=== PATIENT | male | born 1965 | race Caucasian/White ===

== ENCOUNTER 2016-10-14 20:15 | Emergency (ER) | payer OTHER ==
[~2016-10-14] VITALS: Ht 172.7 cm; Wt 88.8 kg
[2016-10-14 20:41] LABS: HEMATOCRIT 42.9 % (38.0-50.0); MCHC 35.7 G/DL (30.0-36.0); MCV 86.8 FL (86-99); MEAN PLAT.VOLUME 9.3 uM^3 (9.0-12.4); PLATELET COUNT 296 K/uL (156-360); RBC DIS.WIDTH-CV 12.3 % (11.8-14.6); RBC DIS.WIDTH-SD 38.5 % (39-53); RED BLOOD COUNT 4.94 M/uL (4.00-5.50); WHITE BLOOD COUNT 6.6 K/uL (4.1-10.2)
[2016-10-14 20:52] LABS: CHLORIDE 105 mEq/L (99-109); POTASSIUM 3.7 mEq/L (3.7-5.4); SODIUM 143 mEq/L (136-147)
[2016-10-14 20:53] LABS: GLUCOSE 104 mg/dL (70-99)
[2016-10-14 20:55] LABS: ANION GAP 13 MEQ/L (2-14)
[2016-10-14 20:57] LABS: GFR ESTIMATE (CALCULATED) > 59 mL/min/
[2016-10-14 20:58] LABS: UREA NITROGEN (BUN) 20 mg/dL (9-23)
[2016-10-14 21:00] LABS: TROP-I INTERPRETATION NEGATIVE; TROPONIN-I < 0.01 ng/mL (0.0-0.30)
[2016-10-14 21:46] LABS: TOTAL BILIRUBIN 0.4 mg/dL (0.0-1.0)
[2016-10-14 21:47] LABS: ALKALINE PHOSPHATASE 56 IU/L (3-129)
[2016-10-14 21:49] LABS: DIRECT BILIRUBIN 0.2 mg/dL (0.0-0.3)
[2016-10-14 21:50] LABS: LIPASE 58 U/L (1.0-51.0)
[2016-10-14 21:51] LABS: D-DIMER ELISA 0.37 mg/L FEU (< 0.57)
[2016-10-14 23:03] LABS: TROP-I INTERPRETATION NEGATIVE; TROPONIN-I < 0.01 ng/mL (0.0-0.30)
[2016-10-14] MEDS ORDERED: NAPROSYN500 MG PO (23:06)
[2016-10-14 23:32] VITALS: BP 120/78
== END 2016-10-14 23:33 | disposition home or self-care (01) ==
LOC: EME 20:15
PROVIDERS: Emergency Medicine
DX: R07.89 Other chest pain (principal); M25.511 Pain in right shoulder; R11.0 Nausea; M79.641 Pain in right hand
CPT/HCPCS: 71020; 80048; 80076; 83690; 84484; 85027; 85379; 93005; 99281; 99284

== ENCOUNTER 2017-03-24 21:03 | Inpatient (IN) | payer OTHER ==
[~2017-03-24] VITALS: Ht 172.7 cm; Wt 91.6 kg
[~2017-03-24 21:03] MED LIST: NAPROSYN500 MG PO
[2017-03-24 22:02] LABS: MCH 30.2 PG (29.0-34.0); MCHC 35.3 G/DL (30.0-36.0); MCV 85.6 FL (86-99); MEAN PLAT.VOLUME 9.2 uM^3 (9.0-12.4); PLATELET COUNT 280 K/uL (156-360); RBC DIS.WIDTH-CV 11.9 % (11.8-14.6); RBC DIS.WIDTH-SD 37.6 % (39-53); RED BLOOD COUNT 5.49 M/uL (4.00-5.50); WHITE BLOOD COUNT 5.9 K/uL (4.1-10.2)
[2017-03-24 22:11] LABS: CHLORIDE 104 mEq/L (99-109)
[2017-03-24 22:12] LABS: POTASSIUM 3.6 mEq/L (3.7-5.4); SODIUM 138 mEq/L (136-147)
[2017-03-24 22:14] LABS: GLUCOSE 131 mg/dL (70-99)
[2017-03-24 22:15] LABS: ANION GAP 11 MEQ/L (2-14)
[2017-03-24 22:16] LABS: TOTAL BILIRUBIN 6.9 mg/dL (0.0-1.0)
[2017-03-24 22:17] LABS: ALKALINE PHOSPHATASE 182 IU/L (3-129); GFR ESTIMATE (CALCULATED) > 59 mL/min/
[2017-03-24 22:19] LABS: UREA NITROGEN (BUN) 9 mg/dL (9-23)
[2017-03-24 22:21] LABS: LIPASE 54 U/L (1.0-51.0)
[2017-03-24 23:29] LABS: ADD MIUA? YES; BILIRUBIN MODERATE; BLOOD SMALL; COLOR AMBER ((YELLOW)); GLUCOSE (STRIP) NEGATIVE; KETONES 5; LEUKOCYTES NEGATIVE; NITRITE NEGATIVE; PROTEIN (STRIP) 30; SPECIFIC GRAVITY 1.023 (1.000-1.030)
[2017-03-24 23:48] LABS: BACTERIA RARE /HPF; EPITHELIAL CELLS NONE SEEN /HPF; MUCUS 2+ /LPF; RED BLOOD CELLS 0-5 /HPF (0-5); UCUL ADDED? NO; WHITE BLOOD CELLS 0-5 /HPF (0-5)
[2017-03-25 00:18] LABS: ICTOTEST POSITIVE
[2017-03-25] MEDS ORDERED: PRILOSEC OTC20 MG PO (01:16)
[2017-03-25 12:38] LABS: HEMATOCRIT 44.6 % (38.0-50.0); MCH 29.7 PG (29.0-34.0); MCHC 34.1 G/DL (30.0-36.0); MCV 87.3 FL (86-99); MEAN PLAT.VOLUME 9.1 uM^3 (9.0-12.4); PLATELET COUNT 247 K/uL (156-360); RBC DIS.WIDTH-CV 12.2 % (11.8-14.6); RBC DIS.WIDTH-SD 39.3 % (39-53); RED BLOOD COUNT 5.11 M/uL (4.00-5.50); WHITE BLOOD COUNT 4.9 K/uL (4.1-10.2)
[2017-03-25 12:48] LABS: INTER. NORMALIZED RATIO 1.1; PROTHROMBIN TIME 10.7 (9.2-11.2)
[2017-03-25 12:57] LABS: CHLORIDE 104 mEq/L (99-109); SODIUM 139 mEq/L (136-147)
[2017-03-25 12:59] LABS: GLUCOSE 106 mg/dL (70-99)
[2017-03-25 13:00] LABS: ANION GAP 11 MEQ/L (2-14)
[2017-03-25 13:01] LABS: TOTAL BILIRUBIN 7.7 mg/dL (0.0-1.0)
[2017-03-25 13:02] LABS: ALKALINE PHOSPHATASE 192 IU/L (3-129)
[2017-03-25 13:03] LABS: GFR ESTIMATE (CALCULATED) > 59 mL/min/
[2017-03-25 13:04] LABS: UREA NITROGEN (BUN) 9 mg/dL (9-23)
[2017-03-25 18:19] VITALS: BP 136/82
[2017-03-26 00:05] VITALS: BP 121/69
[2017-03-26 03:35] VITALS: BP 10/58; BP 100/58
[2017-03-26 06:20] LABS: HEMATOCRIT 38.9 % (38.0-50.0); MCH 30.1 PG (29.0-34.0); MCHC 34.2 G/DL (30.0-36.0); MEAN PLAT.VOLUME 9.4 uM^3 (9.0-12.4); PLATELET COUNT 220 K/uL (156-360); RBC DIS.WIDTH-CV 12.3 % (11.8-14.6); RBC DIS.WIDTH-SD 39.9 % (39-53); RED BLOOD COUNT 4.42 M/uL (4.00-5.50); WHITE BLOOD COUNT 6.7 K/uL (4.1-10.2)
[2017-03-26 07:00] VITALS: BP 99/60
[2017-03-26 08:07] LABS: ALKALINE PHOSPHATASE 142 IU/L (3-129); ANION GAP 9 MEQ/L (2-14); CHLORIDE 106 MEQ/L (99-109); GFR ESTIMATE (CALCULATED) > 59 mL/min/; GLUCOSE 106 mg/dL (70-99); SAMPLE HEMOLYSIS CHECK 0; SAMPLE ICTERIC CHECK 1; SAMPLE LIPEMIA CHECK 0; SODIUM 140 MEQ/L (136-147); TOTAL BILIRUBIN 3.6 MG/DL (0.0-1.0); UREA NITROGEN (BUN) 9 mg/dL (9-23)
[2017-03-26 08:42] LABS: AMYLASE 178 IU/L (1-118); LIPASE 244 U/L (1.0-51.0)
[2017-03-26 11:30] VITALS: BP 101/65
[2017-03-26 16:20] VITALS: BP 114/69
[2017-03-26 21:02] VITALS: BP 113/70
[2017-03-27 00:45] VITALS: BP 116/71
[2017-03-27 06:40] LABS: EOSINOPHIL (%) 2.2 % (0-5); EOSINOPHIL COUNT 0.1 K/uL (0-0.3); HEMATOCRIT 42.8 % (38.0-50.0); IMMATURE GRANULOCYTE (%) 0.3 % (0.0-0.7); INSTRUMENT ABS NEUTROPHIL CT 3.7 K/uL; LYMPHOCYTE COUNT 1.5 K/uL (1.0-2.8); MCH 29.8 PG (29.0-34.0); MCHC 33.6 G/DL (30.0-36.0); MCV 88.6 FL (86-99); MEAN PLAT.VOLUME 9.2 uM^3 (9.0-12.4); MONOCYTE (%) 7.6 % (3-12); MONOCYTE COUNT 0.4 K/uL (0-0.8); NEUTROPHIL (%) 64.4 % (45-76); NEUTROPHIL COUNT 3.7 K/uL (1.8-6.4); PLATELET COUNT 235 K/uL (156-360); RBC DIS.WIDTH-CV 12.4 % (11.8-14.6); RBC DIS.WIDTH-SD 40.6 % (39-53); RED BLOOD COUNT 4.83 M/uL (4.00-5.50); WHITE BLOOD COUNT 5.8 K/uL (4.1-10.2)
[2017-03-27 07:04] LABS: ALKALINE PHOSPHATASE 141 IU/L (3-129); AMYLASE 202 IU/L (1-118); ANION GAP 9 MEQ/L (2-14); CHLORIDE 99 MEQ/L (99-109); GFR ESTIMATE (CALCULATED) > 59 mL/min/; GLUCOSE 87 mg/dL (70-99); LIPASE 223 U/L (1.0-51.0); POTASSIUM 3.7 MEQ/L (3.7-5.4); SAMPLE HEMOLYSIS CHECK 0; SAMPLE ICTERIC CHECK 0; SAMPLE LIPEMIA CHECK 0; SODIUM 134 MEQ/L (136-147); UREA NITROGEN (BUN) 10 mg/dL (9-23)
[2017-03-27 07:05] LABS: TOTAL BILIRUBIN 1.9 MG/DL (0.0-1.0)
[2017-03-27 07:34] VITALS: BP 110/72
[2017-03-27] MEDS ORDERED: AUGMENTIN875 MG PO (10:28)
== END 2017-03-27 13:02 | disposition home or self-care (01) | DRG 445 ==
LOC: EME 21:03 → 2EAST 03-25 12:34 → EDOF 03-25 12:34 → 2EAST 03-25 17:59
PROVIDERS: Internal Medicine; Surgery
DX: K80.63 Calculus of gallbladder and bile duct with acute cholecystitis with obstruction (principal); E66.9 Obesity, unspecified; Z68.30 Body mass index [BMI] 30.0-30.9, adult; K92.0 Hematemesis
CPT/HCPCS: 74181; 74330; 76705; 80053; 81003; 82150; 82378; 83690; 83735; 84100; 85025; 85027; 85610; 85730; 86301 90; 87040; 87081; 99281; 99285; C1757; C1769; C2625; J0330; J1100; J2250; J2405; J2543; J3010; J7030; J7042; J7050; J7120; S0028

== ENCOUNTER → 2017-05-26 | Outpatient (CLI) | payer OTHER ==
[~2017-05-26] VITALS: Ht 172.7 cm; Wt 85.3 kg
[~2017-05-26] MED LIST changes: +AUGMENTIN875 MG PO; +PRILOSEC OTC20 MG PO
== END | disposition home or self-care (01) ==
LOC: AMB 11:15
DX: K80.51 Calculus of bile duct without cholangitis or cholecystitis with obstruction (principal); K21.9 Gastro-esophageal reflux disease without esophagitis
CPT/HCPCS: 74328; 87081; 88160; 88305; C1757; C1769; J0330; J0744; J2250; J2405; J3010

== ENCOUNTER 2017-07-07 10:46 | Day surgery (SDC) | payer OTHER ==
[~2017-07-07] VITALS: Ht 172.7 cm; Wt 88.5 kg
[2017-07-07 11:10] VITALS: BP 120/69
[2017-07-07] MEDS ORDERED: NORCO 5/3251 TABLET PO (15:24)
[2017-07-07] MEDS ORDERED: MOTRIN600 MG PO (15:25)
[2017-07-07 16:50] VITALS: BP 147/81
[2017-07-07 18:00] VITALS: BP 118/83
[2017-07-08] MEDS ORDERED: PERCOCET 5/31 TABLET PO (11:43)
[2017-07-08] MEDS ORDERED: INDOCIN50 MG PO (11:43)
[2017-07-08] MEDS ORDERED: ZOFRAN4 MG PO (12:02)
== END 2017-07-07 18:20 | disposition home or self-care (01) ==
LOC: SDC 10:46
DX: K80.10 Calculus of gallbladder with chronic cholecystitis without obstruction (principal); K66.0 Peritoneal adhesions (postprocedural) (postinfection); K42.0 Umbilical hernia with obstruction, without gangrene; E66.9 Obesity, unspecified; Z68.30 Body mass index [BMI] 30.0-30.9, adult
CPT/HCPCS: 74300; 88304; J0131; J1100; J1170; J1885; J2250; J2405; J3010; S0020

== ENCOUNTER 2017-07-08 09:02 | Emergency (ER) | payer OTHER ==
[~2017-07-08] VITALS: Ht 172.7 cm; Wt 91.7 kg
[~2017-07-08 09:02] MED LIST changes: +MOTRIN600 MG PO; +NORCO 5/3251 TABLET PO
[2017-07-08 09:47] LABS: EOSINOPHIL (%) 0.1 % (0-5); HEMATOCRIT 42.7 % (38.0-50.0); IMMATURE GRANULOCYTE (%) 0.4 % (0.0-0.7); IMMATURE GRANULOCYTE COUNT 0.1 K/uL; INSTRUMENT ABS NEUTROPHIL CT 11.7 K/uL; LYMPHOCYTE COUNT 1.3 K/uL (1.0-2.8); MCH 30.1 PG (29.0-34.0); MCHC 34.7 G/DL (30.0-36.0); MEAN PLAT.VOLUME 9.3 uM^3 (9.0-12.4); MONOCYTE (%) 9.8 % (3-12); MONOCYTE COUNT 1.4 K/uL (0-0.8); NEUTROPHIL (%) 80.7 % (45-76); NEUTROPHIL COUNT 11.7 K/uL (1.8-6.4); PLATELET COUNT 310 K/uL (156-360); RBC DIS.WIDTH-CV 11.9 % (11.8-14.6); RBC DIS.WIDTH-SD 38.5 % (39-53); RED BLOOD COUNT 4.91 M/uL (4.00-5.50); WHITE BLOOD COUNT 14.5 K/uL (4.1-10.2)
[2017-07-08 09:58] LABS: CHLORIDE 104 mEq/L (99-109); POTASSIUM 3.7 mEq/L (3.7-5.4); SODIUM 136 mEq/L (136-147)
[2017-07-08 10:00] LABS: GLUCOSE 138 mg/dL (70-99)
[2017-07-08 10:01] LABS: ANION GAP 10 MEQ/L (2-14)
[2017-07-08 10:02] LABS: TOTAL BILIRUBIN 0.8 mg/dL (0.0-1.0)
[2017-07-08 10:03] LABS: ALKALINE PHOSPHATASE 63 IU/L (3-129); GFR ESTIMATE (CALCULATED) > 59 mL/min/
[2017-07-08 10:05] LABS: UREA NITROGEN (BUN) 16 mg/dL (9-23)
[2017-07-08 11:05] VITALS: BP 109/69
[2017-07-08] MEDS ORDERED: INDOCIN50 MG PO (11:43)
[2017-07-08] MEDS ORDERED: PERCOCET 5/31 TABLET PO (11:43)
[2017-07-08] MEDS ORDERED: ZOFRAN4 MG PO (12:02)
== END 2017-07-08 12:15 | disposition home or self-care (01) ==
LOC: EME 09:02
PROVIDERS: Emergency Medicine
DX: G89.18 Other acute postprocedural pain (principal); Z90.49 Acquired absence of other specified parts of digestive tract
CPT/HCPCS: 74177; 80053; 85025; 99281; 99285; J1885; J2270; J2405; J7030

== ENCOUNTER 2017-12-07 13:37 | Emergency (ER) | payer OTHER ==
[~2017-12-07] VITALS: Ht 172.7 cm; Wt 92.2 kg
[~2017-12-07 13:37] MED LIST changes: +INDOCIN50 MG PO; +PERCOCET 5/31 TABLET PO; +ZOFRAN4 MG PO
[2017-12-07] MEDS ORDERED: MOTRIN600 MG PO (15:51)
[2017-12-07 16:08] VITALS: BP 118/82
== END 2017-12-07 16:09 | disposition home or self-care (01) ==
LOC: EME 13:37
DX: M25.561 Pain in right knee (principal); K21.9 Gastro-esophageal reflux disease without esophagitis
CPT/HCPCS: 93971; 99281; 99284